=== PATIENT | female | born 1965 | race Caucasian/White ===

== ENCOUNTER 2022-10-10 10:13 | Emergency (ER) | payer MEDICARE, BC ==
[2022-10-10 12:05] LABS: ESTIMATED GFR 75 mL/min (>60)
[2022-10-10] MEDS ORDERED: Ketorolac 30 MG/ML SDV IVPUSH ONE (12:18)
[2022-10-10] MEDS ORDERED: Iopamidol 755 Mg/ML 100 ML Bottle IV SCH (13:45)
[2022-10-10] MEDS ORDERED: Sodium Chloride 0.9% 100 ML IV SCH (13:45)
== END 2022-10-10 14:22 | disposition home or self-care (01) ==
LOC: JP.ED 10:13
DX: M54.6 Pain in thoracic spine (principal); E11.42 Type 2 diabetes mellitus with diabetic polyneuropathy; Z91.030 Bee allergy status; Z88.2 Allergy status to sulfonamides; Z88.5 Allergy status to narcotic agent; Z88.0 Allergy status to penicillin; Z91.040 Latex allergy status; Z91.041 Radiographic dye allergy status; Z91.048 Other nonmedicinal substance allergy status
CPT/HCPCS: 36415; 71045; 80053; 84484; 85025; 85379; 96374; 99284; J1885

== ENCOUNTER 2022-10-11 10:31 | Emergency (ER) | payer MEDICARE, BC ==
[2022-10-11] MEDS ORDERED: Rivaroxaban 10 MG Tab PO ONE (11:54)
[2022-10-11] MEDS ORDERED: Rivaroxaban 15 MG Tab PO ONE (12:00)
== END 2022-10-11 12:55 | disposition home or self-care (01) ==
LOC: JP.ED 10:31
DX: R07.81 Pleurodynia (principal); E11.9 Type 2 diabetes mellitus without complications; Z91.030 Bee allergy status; Z88.2 Allergy status to sulfonamides; Z88.5 Allergy status to narcotic agent; Z88.0 Allergy status to penicillin; Z91.041 Radiographic dye allergy status; Z91.040 Latex allergy status; Z90.49 Acquired absence of other specified parts of digestive tract
CPT/HCPCS: 36415; 85379; 93970; 99285; A9270

== ENCOUNTER 2024-05-20 11:49 | Emergency (ER) | payer MEDICARE, BC | END 2024-05-20 12:27 | disposition left against medical advice (07) | LOC: JP.ED 11:49 | DX: Z53.21 Procedure and treatment not carried out due to patient leaving prior to being seen by health care provider (principal) ==